=== PATIENT | female | born 1995 | race African-American/Black ===

== ENCOUNTER 2019-03-13 09:48 | Emergency (ER) | payer OTHER ==
[~2019-03-13] VITALS: Ht 167.6 cm; Wt 106.6 kg
[~2019-03-13 09:48] MED LIST: AMOXICILLIN 50500 M1 PO; KEFLEX500 M1 PO
[2019-03-13] MEDS ORDERED: NAPROSYN500 MG PO (11:08)
[2019-03-13] MEDS ORDERED: ZPAK PO (11:08)
[2019-03-13] MEDS ORDERED: NORFLEX100 MG PO (11:08)
[2019-03-13 11:13] VITALS: BP 124/70
== END 2019-03-13 11:13 | disposition home or self-care (01) ==
LOC: ER 09:48
DX: J32.9 Chronic sinusitis, unspecified (principal); J03.90 Acute tonsillitis, unspecified; M43.6 Torticollis

== ENCOUNTER 2019-08-17 17:04 | Emergency (ER) | payer OTHER ==
[~2019-08-17] VITALS: Ht 167.6 cm; Wt 106.6 kg
[~2019-08-17 17:04] MED LIST changes: +NAPROSYN500 MG PO; +NORFLEX100 MG PO; +ZPAK PO
[2019-08-17 17:25] LABS: URINE BILIRUBIN NEGATIVE (Negative); URINE BLOOD NEGATIVE (Negative); URINE CLARITY CLEAR; URINE COLOR YELLOW; URINE GLUCOSE-RANDOM* NEGATIVE (Negative); URINE KETONES NEGATIVE (Negative); URINE LEUKOCYTES-REFLEX 1+ (Negative); URINE NITRITE-REFLEX NEGATIVE (Negative); URINE PROTEIN (DIPSTICK) NEGATIVE (Negative); URINE SPECIFIC GRAVITY 1.025 (1.005-1.035)
[2019-08-17 17:33] LABS: CASTS None Seen /LPF (None Seen); CRYSTALS None Seen /LPF (None Seen); SQUAMOUS 4-10 Moderate /LPF (0-3)
[2019-08-17 17:34] LABS: BACTERIA-REFLEX 1-9 Few /HPF (None Seen); URINE RBC None Seen /HPF (0-2)
[2019-08-17] MEDS ORDERED: KEFLEX500 M1 PO (17:53)
[2019-08-17] MEDS ORDERED: CEPACOL SORE T1 EAC8 PO (17:53)
[2019-08-17 18:03] VITALS: BP 145/63
== END 2019-08-17 18:07 | disposition home or self-care (01) ==
LOC: ER 17:04
PROVIDERS: Physician Assistant
DX: J02.9 Acute pharyngitis, unspecified (principal); N39.0 Urinary tract infection, site not specified

== ENCOUNTER 2019-08-30 23:46 | Emergency (ER) | payer OTHER ==
[~2019-08-30] VITALS: Ht 167.6 cm; Wt 106.6 kg
[~2019-08-30 23:46] MED LIST changes: +CEPACOL SORE T1 EAC8 PO
[2019-08-31 02:01] LABS: BASOPHILS 0.8 % (0.0-2.0); EOSINOPHILS 0.2 % (0.0-3.0); HEMOGLOBIN 11.3 gm/dL (12.0-15.0); LYMPHOCYTES 27.6 % (24.0-44.0); MCH 26.8 pg (26.0-34.0); MCHC 32.2 g/dL (28.0-37.0); MONOCYTES 10.2 % (1.0-8.0); PLATELET COUNT 167 thou/uL (150-400); POLYS 61.2 % (36.0-66.0); RBC 4.21 mil/uL (4.20-5.00); RDW 13.2 % (10.5-14.5); WBC 3.2 thou/uL (4.0-11.0)
[2019-08-31 02:14] LABS: CALCIUM 8.2 mg/dL (8.5-10.1); POTASSIUM 3.2 mmol/L (3.5-5.1)
[2019-08-31 03:15] VITALS: BP 133/78
== END 2019-08-31 03:15 | disposition home or self-care (01) ==
LOC: ER 23:46
PROVIDERS: Emergency Medicine
DX: J10.1 Influenza due to other identified influenza virus with other respiratory manifestations (principal)

== ENCOUNTER 2019-11-13 12:00 | Emergency (ER) | payer OTHER ==
[~2019-11-13] VITALS: Ht 167.6 cm; Wt 106.6 kg
[2019-11-13] MEDS ORDERED: CORTISPORIN OTI10 M2 OTIC (15:03)
[2019-11-13 15:18] VITALS: BP 118/71
== END 2019-11-13 15:18 | disposition home or self-care (01) ==
LOC: ER 12:00
DX: T16.1XXA Foreign body in right ear, initial encounter (principal); X58.XXXA Exposure to other specified factors, initial encounter; Y93.89 Activity, other specified; Y92.89 Other specified places as the place of occurrence of the external cause; Y99.8 Other external cause status

== ENCOUNTER 2020-11-07 19:30 | Emergency (ER) | payer OTHER ==
[~2020-11-07] VITALS: Ht 167.6 cm; Wt 111.1 kg
[~2020-11-07 19:30] MED LIST changes: +CORTISPORIN OTI10 M2 OTIC
[2020-11-07] MEDS ORDERED: AMOXICILLIN 50500 MG PO (20:34)
[2020-11-07] MEDS ORDERED: ZOFRAN ODT4 MG PO (20:34)
[2020-11-07 20:45] VITALS: BP 153/73
== END 2020-11-07 20:46 | disposition home or self-care (01) ==
LOC: ER 19:30
DX: J02.9 Acute pharyngitis, unspecified (principal); K52.9 Noninfective gastroenteritis and colitis, unspecified; B35.1 Tinea unguium

== ENCOUNTER 2020-11-28 08:11 | Emergency (ER) | payer OTHER ==
[~2020-11-28] VITALS: Ht 167.6 cm; Wt 111.1 kg
[~2020-11-28 08:11] MED LIST changes: +AMOXICILLIN 50500 MG PO; +ZOFRAN ODT4 MG PO
[2020-11-28] MEDS ORDERED: BENADRYL25 MG PO (10:15)
[2020-11-28] MEDS ORDERED: PREDNISONE 20 M20 MG PO (10:15)
[2020-11-28 12:00] VITALS: BP 124/65
== END 2020-11-28 12:37 | disposition home or self-care (01) ==
LOC: ER 08:11
DX: T78.40XA Allergy, unspecified, initial encounter (principal); Z79.899 Other long term (current) drug therapy; Y92.89 Other specified places as the place of occurrence of the external cause

== ENCOUNTER 2020-12-03 10:51 | Emergency (ER) | payer OTHER ==
[~2020-12-03] VITALS: Ht 172.7 cm; Wt 120.2 kg
[~2020-12-03 10:51] MED LIST changes: +BENADRYL25 MG PO; +PREDNISONE 20 M20 MG PO
[2020-12-03 11:20] LABS: URINE BILIRUBIN NEGATIVE (Negative); URINE BLOOD NEGATIVE (Negative); URINE CLARITY CLEAR; URINE COLOR YELLOW; URINE GLUCOSE-RANDOM* NEGATIVE (Negative); URINE KETONES NEGATIVE (Negative); URINE LEUKOCYTES-REFLEX TRACE (Negative); URINE NITRITE-REFLEX NEGATIVE (Negative); URINE PROTEIN (DIPSTICK) NEGATIVE (Negative); URINE SPECIFIC GRAVITY 1.025 (1.005-1.035); URINE UROBILINOGEN 0.2 E.U./dl (0.2-1.0)
[2020-12-03] MEDS ORDERED: PEPCID40 MG PO (13:43)
[2020-12-03] MEDS ORDERED: ZYRTEC10 M4 PO (13:43)
[2020-12-03] MEDS ORDERED: PREDNISONE 10 M10 MG PO (13:43)
[2020-12-03 14:08] VITALS: BP 133/75
== END 2020-12-03 14:11 | disposition home or self-care (01) ==
LOC: ER 10:51
PROVIDERS: Emergency Medicine
DX: T78.40XA Allergy, unspecified, initial encounter (principal); M79.605 Pain in left leg; Z79.899 Other long term (current) drug therapy; Y92.89 Other specified places as the place of occurrence of the external cause

== ENCOUNTER 2020-12-24 13:21 | Emergency (ER) | payer OTHER ==
[~2020-12-24] VITALS: Ht 167.6 cm; Wt 111.1 kg
[~2020-12-24 13:21] MED LIST changes: +PEPCID40 MG PO; +PREDNISONE 10 M10 MG PO; +ZYRTEC10 M4 PO
[2020-12-24] MEDS ORDERED: FAMOTIDINE40 MG PO (13:29)
[2020-12-24] MEDS ORDERED: VANACOF DM LIQ240 ML PO (14:26)
[2020-12-24] MEDS ORDERED: TYLENOL325 M1 PO (14:26)
[2020-12-24] MEDS ORDERED: NAPROSYN500 MG PO (14:26)
[2020-12-24 14:53] VITALS: BP 128/77
== END 2020-12-24 14:54 | disposition home or self-care (01) ==
LOC: ER 13:21
DX: J02.8 Acute pharyngitis due to other specified organisms (principal); B97.89 Other viral agents as the cause of diseases classified elsewhere; J06.9 Acute upper respiratory infection, unspecified; Z79.899 Other long term (current) drug therapy; Z20.822 Contact with and (suspected) exposure to COVID-19

== ENCOUNTER 2021-04-10 18:29 | Emergency (ER) | payer OTHER ==
[~2021-04-10] VITALS: Ht 167.6 cm; Wt 120.2 kg
[~2021-04-10 18:29] MED LIST changes: +FAMOTIDINE40 MG PO; +TYLENOL325 M1 PO; +VANACOF DM LIQ240 ML PO
[2021-04-10 18:36] VITALS: BP 154/73
== END 2021-04-10 19:25 | disposition home or self-care (01) ==
LOC: ER 18:29
DX: J06.9 Acute upper respiratory infection, unspecified (principal); Z20.822 Contact with and (suspected) exposure to COVID-19; Z79.899 Other long term (current) drug therapy

== ENCOUNTER 2021-07-30 12:28 | Emergency (ER) | payer OTHER ==
[~2021-07-30] VITALS: Ht 167.6 cm; Wt 122.5 kg
[2021-07-30] MEDS ORDERED: ERYTHROMYCIN E3.5 G2 OPHTHALMIC (12:48)
[2021-07-30 12:54] VITALS: BP 130/67
== END 2021-07-30 12:54 | disposition home or self-care (01) ==
LOC: ER 12:28
DX: S05.02XA Injury of conjunctiva and corneal abrasion without foreign body, left eye, initial encounter (principal); Z79.899 Other long term (current) drug therapy; X58.XXXA Exposure to other specified factors, initial encounter; Y93.89 Activity, other specified; Y92.89 Other specified places as the place of occurrence of the external cause; Y99.8 Other external cause status